=== PATIENT | female | born 1955 | race American Indian/Alaskan Native ===

== ENCOUNTER 2017-10-01 11:47 | Outpatient (CLI) | payer OTHER ==
--- NOTE | 2017-10-03 12:18 | Mammography Report ---
Screening mammogram: Routine views demonstrates a somewhat nodular appearing breast pattern bilaterally which is generally diffusely distributed in a symmetric pattern. In the upper outer left breast as well as in the anterior superior left breast there are 2 circumscribed nodules each measuring less than a centimeter. No suspicious characteristics. No other significant findings. No recent prior exam for comparison. CAD used. Impression: Left breast nodules. Recommendation: Left breast ultrasound. Additional mammographic images if there are suspicious findings. BI-RADS CATEGORY: 0 = Needs additional imaging evaluation ACR BI-RADS MAMMOGRAPHIC CODES: 0 = Needs additional imaging evaluation; 1 = Negative; 2 = Benign; 3 = Probably benign; 4 = Suspicious; 5 = Malignant; 6 = Known biopsy-proven malignancy COMMENT: 1. Dense breast tissue, i.e., adenosis, fibrocystic changes, etc., may obscure an underlying neoplasm. 2. Approximately 10% of cancers are not detected with mammography. 3. A negative mammography report should not delay biopsy if a clinically suspicious mass is present.
== END 2017-10-01 11:48 | disposition home or self-care (01) ==
LOC: MAMMO 11:47
PROVIDERS: ATTEND Internal Medicine
DX: Z12.31 Encounter for screening mammogram for malignant neoplasm of breast (principal)
CPT/HCPCS: 77067

== ENCOUNTER 2017-10-25 13:50 | Outpatient (CLI) | payer OTHER ==
--- NOTE | 2017-10-26 13:16 | Ultrasound Report ---
LEFT BREAST ULTRASOUND: 10/25/17 13:50:00 CLINICAL: Abnormal screening mammogram COMPARISON: 10/01/17 mammogram FINDINGS: Ultrasound of the left breast demonstrated a benign retroareolar cyst at 12 o'clock measuring 5 x 5 x 5 mm.It correlates with the mammographic density. A lymph node at 2 o'clock 7 cm from the nipple measures 7 x 2 x 5 mm and correlates with the second density on the mammogram. IMPRESSION: A benign 5 mm retroareolar cyst at 12 o'clock and a benign intramammary lymph node at 2 o'clock. BI-RADS 2 - - Benign RECOMMENDATION: Routine mammographic screening.
== END 2017-10-25 13:51 | disposition home or self-care (01) ==
LOC: MAMMO 13:50
PROVIDERS: ATTEND Internal Medicine
DX: N60.02 Solitary cyst of left breast (principal); R92.8 Other abnormal and inconclusive findings on diagnostic imaging of breast